=== PATIENT | female | born 2000 | race African-American/Black ===

== ENCOUNTER 2020-03-02 22:35 | Emergency (ER) | payer SELFPAY ==
[~2020-03-02] VITALS: Ht 172.7 cm; Wt 65.0 kg
[2020-03-03] MEDS ORDERED: LORAZEPAM 1MG TABLET PO ONE (11:30)
[2020-03-03 18:16] VITALS: BP 130/68
== END 2020-03-03 22:20 | disposition home or self-care (01) ==
LOC: ER 22:35
DX: R68.89 Other general symptoms and signs (principal); Z59.0 Homelessness; F32.9 Major depressive disorder, single episode, unspecified; F20.9 Schizophrenia, unspecified
CPT/HCPCS: 99285

== ENCOUNTER 2020-03-04 03:44 | Emergency (ER) | payer MEDICAID ==
[~2020-03-04] VITALS: Ht 172.7 cm; Wt 74.0 kg
[2020-03-04 13:40] VITALS: BP 118/74
== END 2020-03-04 14:09 | disposition home or self-care (01) ==
LOC: ER 03:44
DX: Z04.89 Encounter for examination and observation for other specified reasons (principal); F20.9 Schizophrenia, unspecified; F32.9 Major depressive disorder, single episode, unspecified; Z59.0 Homelessness
CPT/HCPCS: 99285

== ENCOUNTER 2021-11-17 05:11 | Observation (INO) | payer MEDICAID ==
[~2021-11-17] VITALS: Ht 172.7 cm; Wt 71.2 kg
[2021-11-17] MEDS ORDERED: LACTATED RINGERS 1,000 ML IV SCH (06:00)
[2021-11-17] MEDS ORDERED: PREN1TAB78 PO (06:03)
[2021-11-17] MEDS ORDERED: CEFAZOLIN 2,000 MG in DEXT 5% WATER 100 ML IV SCH (08:00)
== END 2021-11-17 10:20 | disposition home or self-care (01) ==
LOC: 8 EST LDRP 05:11
PROVIDERS: ADMIT Obstetrics & Gynecology; ATTEND Obstetrics & Gynecology
DX: O26.893 Other specified pregnancy related conditions, third trimester (principal); R10.30 Lower abdominal pain, unspecified; R51.9 Headache, unspecified; O99.891 Other specified diseases and conditions complicating pregnancy; M54.9 Dorsalgia, unspecified; Z3A.32 32 weeks gestation of pregnancy
CPT/HCPCS: 59025; 76805; 76818; 82731; 96361; 96365; 96366; G0378; J0690; J7060; 96360; 99281